=== PATIENT | female | born 1955 | race Caucasian/White ===

== ENCOUNTER → 2017-01-28 | Outpatient (CLI) | payer BC ==
[~2017-01-28] MED LIST: ALL60 PO; CALCTAB5 PO; MULT-506 PO
[2017-01-28 13:46] LABS: ESTIMATED AVERAGE GLUCOSE 146 mg/dl; HA1C FLAG Normal (Normal)
[2017-01-28 14:07] LABS: THYROID STIMULATING HORMONE 0.299 uIu/ml (0.300-4.500)
== END | disposition home or self-care (01) ==
LOC: C.LAB1850 12:17
PROVIDERS: ATTEND Internal Medicine Endocrinology, Diabetes & Metabolism
DX: E11.9 Type 2 diabetes mellitus without complications (principal); E05.90 Thyrotoxicosis, unspecified without thyrotoxic crisis or storm

== ENCOUNTER → 2017-03-02 | Outpatient (CLI) | payer BC ==
[2017-03-02 16:32] LABS: BASO % 0.2 %; BASO ABS # 0.02 K/uL (0-0.2); COMPLETE YES; EOS % 1.6 %; HEMATOCRIT 46.1 % (37-47); IG% 0.2 %; LYMPH % 19.2 %; LYMPH ABS # 1.66 K/uL (1.2-3.4); MEAN CELL VOLUME 89.7 fL (80-100); MEAN CORPUSCULAR HEMOGLOBIN 29.2 pg (25-34); MEAN CORPUSCULAR HGB CONC 32.5 g/dl (32-36); MEAN PLATELET VOLUME 10.6 fL (7.4-10.4); MONO % 8.7 %; NEUT % 70.1 %; PLATELET COUNT 313 K/uL (130-400); RED BLOOD COUNT 5.14 M/uL (4.2-5.4); WHITE BLOOD COUNT 8.64 K/uL (4.8-10.8)
[2017-03-02 16:58] LABS: ALT/SGPT 30 U/L (12-78); AST/SGOT 18 U/L (15-37); BLOOD UREA NITROGEN 14 mg/dl (7-18); BUN/CREATININE RATIO 19.2 (10-20); CALCIUM 9.7 mg/dl (8.5-10.1); CARBON DIOXIDE 27 mmol/L (21-32); CHLORIDE 104 mmol/L (98-107); CREATININE 0.72 mg/dl (0.60-1.20); GLUCOSE 82 mg/dl (70-99); POTASSIUM 3.6 mmol/L (3.5-5.1); SODIUM 141 mmol/L (136-145)
[2017-03-02 17:01] LABS: ALKALINE PHOSPHATASE 101 U/L (45-117)
[2017-03-02 17:05] LABS: THYROID STIMULATING HORMONE 1.15 uIu/ml (0.300-4.500)
== END | disposition home or self-care (01) ==
LOC: C.LAB1850 15:05
PROVIDERS: ATTEND Internal Medicine Hematology & Oncology
DX: C50.511 Malignant neoplasm of lower-outer quadrant of right female breast (principal); E05.90 Thyrotoxicosis, unspecified without thyrotoxic crisis or storm

== ENCOUNTER → 2017-03-30 | Outpatient (CLI) | payer BC ==
[2017-03-30 17:55] LABS: CHOLESTEROL/HDL RATIO 3.5; THYROID STIMULATING HORMONE 0.823 uIu/ml (0.300-4.500)
== END ==
LOC: C.LAB1850 16:43
PROVIDERS: ATTEND Internal Medicine Endocrinology, Diabetes & Metabolism
DX: E11.9 Type 2 diabetes mellitus without complications (principal); E05.90 Thyrotoxicosis, unspecified without thyrotoxic crisis or storm

== ENCOUNTER 2023-08-18 07:17 | Observation (INO) ==
--- NOTE | 2023-07-08 15:00 | PAT Medication Instructions ---
Medication Instructions Date of Service July 08, 2023 Home Medications Medication Instructions Recorded blood sugar diagnostic (NanoDetection TechnologyTouch #300 ea 04/01/22 Verio test strips) lancets 30 gauge (OneTouch Delica #200 ea 09/21/22 Lancets) anastrozole 1 mg tablet (Arimidex) 1 mg PO QPM calcium carbonate 600 mg-vitamin D3 20 mcg (800 unit) chewable tablet (Caltrate 600 plus D) 1 tab PO QAM cholecalciferol (vitamin D3) 50 mcg (2,000 unit) tablet 2,000 units PO QAM mecobalamin (vitamin B12) 1,000 mcg disintegrating tablet,sublingual 1,000 mcg sublingual QAM apixaban 5 mg tablet (Eliquis) 5 mg PO BID evolocumab 420 mg/3.5 mL subcutaneous wearable injector (Repatha Pushtronex) 420 mg subcut MONTHLY flecainide 50 mg tablet 50 mg PO Q12H cbd oil 1 dose PO UD PRN diclofenac sodium 20 mg/gram/actuation (2 %) topical soln metered-dose pump (Pen nsaid) 2 pump topical BID PRN metoprolol tartrate 25 mg tablet 25 mg PO BID insulin glargine U-300 conc 300 unit/mL (1.5 mL) subcutaneous pen (Toujeo SoloStar U-300 Insulin) 20 - 24 unit subcut HS methimazole 5 mg tablet 7.5 mg PO QPM semaglutide 0.25 mg or 0.5 mg (2 mg/3 mL) subcutaneous pen injector (Ozempic) 0.5 mg subcut WK vit C 250 mg-vit E 90 mg-zinc 40 mg-copper 1 ee-dgkdzd-rlikhv capsule (PreserVision AREDS-2) 1 tab PO QAM STOP 7 days before surgery semaglutide 0.25 mg or 0.5 mg (2 mg/3 mL) subcutaneous pen injector (Ozempic) 0.5 mg subcut WK ASK your surgeon for instructions diclofenac sodium 20 mg/gram/actuation (2 %) topical soln metered-dose pump (Pennsaid) 2 pump topical BID PRN ASK your prescriber and surgeon anastrozole 1 mg tablet (Arimidex) 1 mg PO QPM evolocumab 420 mg/3.5 mL subcutaneous wearable injector (Repatha Pushtronex) 420 mg subcut MONTHLY apixaban 5 mg tablet (Eliquis) 5 mg PO BID(in order for spinal or epidural anesthesia, Eliquis needs to be stopped 72 hours/3 days before surgery. Please check if okay with doctor that prescribes this to you) STOP taking 2 weeks before surgery (or as soon as possible if surgery is within 2 weeks) vit C 250 mg-vit E 90 mg-zinc 40 mg-copper 1 zi-hqsxwg-fkmxyp capsule (PreserVision AREDS-2) 1 tab PO QAM STOP taking 24 hours before surgery cbd oil 1 dose PO UD PRN DO NOT take the morning of surgery calcium carbonate 600 mg-vitamin D3 20 mcg (800 unit) chewable tablet (Caltrate 600 plus D) 1 tab PO QAM cholecalciferol (vitamin D3) 50 mcg (2,000 unit) tablet 2,000 units PO QAM mecobalamin (vitamin B12) 1,000 mcg disintegrating tablet,sublingual 1,000 mcg sublingual QAM Take morning of surgery With a small sip of water, OTHERWISE NOTHING TO EAT OR DRINK AFTER MIDNIGHT: flecainide 50 mg tablet 50 mg PO Q12H metoprolol tartrate 25 mg tablet 25 mg PO BID Take evening before surgery flecainide 50 mg tablet 50 mg PO Q12H metoprolol tartrate 25 mg tablet 25 mg PO BID insulin glargine U-300 conc 300 unit/mL (1.5 mL) subcutaneous pen (Toujeo SoloStar U-300 Insulin) 20 - 24 unit subcut HS methimazole 5 mg tablet 7.5 mg PO QPM Other Notes If you have any questions please call us at [phone] or [phone] or [phone] or [phone]
--- NOTE | 2023-07-13 13:50 | Anesthesiology Consultation ---
Date of Service July 13, 2023 Assessment & Plan (1) Encounter for pre-operative examination: - will attempt to obtain copy of thyroid studies patient is going to complete 07/14/23 for [facility] and will await 07/21/23 [facility] office note. - check BSG am DOS. - right arm restriction. - Patient anesthesia h/o complication with spinal anesthesia: (emergent c- section) during the insertion of the spinal patient states "they hit something that caused severe pain" residual pain for several months. We discussed neuraxial vs general anesthesia, at this time she prefers to pursue plan for neuraxial anesthesia. She declined questions or concerns; is aware she can also further discuss this with anesthesiologist am DOS. - difficult IV stick. - cardiology office visit 02/03/23: "...EP evaluation...paroxysmal atrial fibrillation, SVT, PVCs, hypertension...no cardiac symptoms...PAF/SVT...has maintained sinus rhythm with no subjective or objective relapse of the arrhythmias...CHADS2-vasc is 4 corresponding to 4% annual stroke risk...follow- up in 6 months..." - Ozempic instructions: Patient takes on (Tuesday). Patient informed at PAT visit to stop 7 days prior to surgery-voiced understanding. Instructed last dose will be: (08/10/23). Patient advised to check with prescriber to see if alternative diabetic management changes recommended while holding Ozempic and instructions on resuming Ozempic. She was advised if alternative diabetic medication is advised to call back to PAT to update chart and discuss if any further preop medication instructions needed. She verbalized understanding and denied questions or concerns. - Outpatient joint assessment: Patient is currently scheduled for inpatient pathway. If re-evaluated and patient/surgeon requests outpatient pathway, patient is not recommended candidate for outpatient joint program from anesthesia standpoint. Chart Review Chart Review: Pending: Refer to Additional Notes / Consult section and Patient seen in Pre Admission Testing Teaching & Discussion Pre-Anesthesia Teaching/Discussion Notes: Instructed NPO after midnight before surgery, except medications with 15 cc of water. Medication instructions provided according to the PAT guidelines. History Surgery Operation Date: 08/18/23 08:45 Proposed Procedures p Right Total Knee Arthroplasty - Ralph Sun MD s Left Knee Intra-articular Injection - Ralph Sun MD Height/Weight Height: 5 ft 2 in Weight: 83.9 kg Allergies Allergy/AdvReac Type Severity Reaction Status Date / Time latex Allergy Severe redness Verified 07/08/23 12:38 and blistering metformin AdvReac Severe diarrhea Verified 07/08/23 12:06 morphine AdvReac Severe unable to Verified 07/08/23 12:06 focus, nauseated, dizziness oxycodone AdvReac Severe SEVERE Verified 07/08/23 12:06 VOMITING celecoxib [From Celebrex] AdvReac Intermediate Gastrointestinal Verified 07/08/23 12:08 Upset Decongestant TABS AdvReac Severe "constant Uncoded 07/08/23 12:08 swallowing" unsure of which exact drug Medications Home Medications Medication Instructions Recorded Confirmed Last Taken anastrozole 1 mg tablet (Arimidex) 1 mg PO QPM 09/17/19 07/08/23 Unknown calcium carbonate 600 mg-vitamin 1 tab PO QAM 09/17/19 07/08/23 Unknown D3 20 mcg (800 unit) chewable tablet (Caltrate 600 plus D) cholecalciferol (vitamin D3) 50 2,000 units PO QAM 09/17/19 07/08/23 Unknown mcg (2,000 unit) tablet mecobalamin (vitamin B12) 1,000 1,000 mcg sublingual QAM 09/17/19 07/08/23 Unknown mcg disintegrating tablet,sublingual apixaban 5 mg tablet (Eliquis) 5 mg PO BID 09/19/20 07/08/23 Unknown evolocumab 420 mg/3.5 mL 420 mg subcut MONTHLY 12/19/20 07/08/23 Unknown subcutaneous wearable injector (Repatha Pushtronex) flecainide 50 mg tablet 50 mg PO Q12H 12/19/20 07/08/23 Unknown blood sugar diagnostic (OneTouch #300 ea 04/01/22 04/19/23 Unknown Verio test strips) pen needle, diabetic 31 gauge x 04/01/22 04/19/23 Unknown 12/16" (BD Ultra-Fine Mini Pen Needle) cbd oil 1 dose PO UD PRN Pain 09/21/22 07/08/23 Unknown diclofenac sodium 20 2 pump topical BID PRN Pain 09/21/22 07/08/23 Unknown mg/gram/actuation (2 %) topical soln metered-dose pump (Pennsaid) lancets 30 gauge (OneTouch Delica #200 ea 09/21/22 04/19/23 Unknown Lancets) metoprolol tartrate 25 mg tablet 25 mg PO BID 04/19/23 07/08/23 Unknown insulin glargine U-300 conc 300 20 - 24 unit subcut HS 07/08/23 07/08/23 Unknown unit/mL (1.5 mL) subcutaneous pen ([employer] SoloStar U-300 Insulin) methimazole 5 mg tablet 7.5 mg PO QPM 07/08/23 07/08/23 Unknown semaglutide 0.25 mg or 0.5 mg (2 0.5 mg subcut WK 07/08/23 07/08/23 07/06/23 mg/3 mL) subcutaneous pen injector ([email or web address]) vit C 250 mg-vit E 90 mg-zinc 40 1 tab PO QAM 07/08/23 07/08/23 Unknown mg-copper 1 oo-utflwe-tqdhwo capsule (PreserVision AREDS-2) Past Medical History Medical History (Updated 07/13/23 @ 15:07 by Hilaria Han PA-C) Atrial fibrillation controlled with medication. Follows with [facility]. 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 slow to wake up with general anesthesia/strong pain medications History of blood transfusion 2000 Hx of vertigo stable per pt, denies recent episode Hyperthyroidism follows with [facility] [place] IBS (irritable bowel syndrome) controlled, stable per pt Limb alert care status right arm Macular degeneration Mild aortic stenosis Mild aortic stenosis (YENIFER 1.5 cm2, mean gradient 11mmHg) Nausea and vomiting after administration of anesthetic agent denies needing scop patch Obesity (BMI 30.0-34.9) Sleep apnea cpap at night Patient denies h/o stroke, seizures, heart attack, heart failure, or blood clots/DVTs. Exercise / Class Metabolic Activity II 4-5 Yardwork/Stairs/Walk up hill (denies chest discomfort or shortness of breath with 1 FOS) Past Family History Family History Father Heart disease Dyslipidemia Mother Heart disease Denies family history of Ovarian cancer Prostate cancer Myocardial infarction Breast cancer Colorectal cancer Past Surgical History Surgical History (Updated 07/13/23 @ 14:01 by Hilaria Han PA-C) H/O lumpectomy right lumpectomy (2016) History of bladder repair surgery History of section History of cholecystectomy lap History of colonoscopy History of hysterectomy History of open reduction and internal fixation (ORIF) procedure Left ankle with hardware History of surgery recto-vaginal fistula repair Past Anesthesia History No Family Hx of Anesthesia Complications and Other (slow to wake after anesthesia, denies re-intubation or unanticipated extended intubation) History of PONV History of PONV (with cholecystectomy; denies needing scop patch) and Hx of Motion Sickness Social History Smoking Status: Never smoker Do You Dip or Chew Tobacco: No Hx Alcohol Use: No Hx Substance Use: No substance use type: does not use Review of Systems Patient denies chest pain, shortness of breath, dyspnea on exertion, reflux, fever, chills, cough, wheezing, or palpitations. Physical Exam Vital Signs Vitals BP 119/79 P 64 TEMP 98.3 SP02 94% on RA RESP 18 Physical Patient resting comfortably in chair in no acute distress, alert and oriented, responding appropriately throughout visit Full cervical extension range of motion without pain TMD 3.5 finger breadths Mallampati Score 3 Dentition: right back broken tooth and left upper back crown, denies loose teeth, implants or bridges Lungs: normal respiratory effort. Good air movement, clear throughout to auscultation, no adventitious breath sounds Cardiac: regular rate and rhythm, no murmurs noted Carotid arteries: negative bruit bilat Lab Results Anesthesia Preop Results Results Anesthesia Widget: WBC 8.18 K/ul (4.8-10.8) 07/13/23 Hgb 14.9 g/dl (12.0-16.0) 07/13/23 Hct 44.6 % (37.0-47.0) 07/13/23 Plt 304 K/uL (130-400) 07/13/23 Na 139 mmol/L (136-145) 07/13/23 K 3.6 mmol/L (3.5-5.1) 07/13/23 Cl 105 mmol/L (98-107) 07/13/23 CO2 25 mmol/L (21-32) 07/13/23 BUN 15 mg/dl (6-23) 07/13/23 Creat 0.73 mg/dl (0.6-1.2) 07/13/23 Glucose Level 135 mg/dl (70-99(Fasting)) H 07/13/23 PT 10.9 Seconds (9.0-12.0) 07/13/23 PTT 30.6 Seconds (21.0-31.0) 07/13/23 INR 1.0 (0.9-1.1) 07/13/23 Urine Color Yellow 07/13/23 Urine Appearance Clear (Clear) 07/13/23 Urine pH 5.5 (4.5-7.5) 07/13/23 Urine Specific [place] 1.012 (1.000-1.030) 07/13/23 Urine Protein Negative (Negative) 07/13/23 Urine Glucose (UA) Negative (Negative) 07/13/23 Urine Ketones Negative (Negative) 07/13/23 Urine Blood 2+ (Negative) H 07/13/23 Urine Nitrite Negative (Negative) 07/13/23 Urine Bilirubin Negative (Negative) 07/13/23 Urine Urobilinogen Negative (Negative) 07/13/23 Urine Leukocyte Esterase Negative (Negative) 07/13/23 Urine WBC (Auto) 1-5 /hpf (0-5) 07/13/23 Urine RBC (Auto) 10-30 /hpf (0-4) H 07/13/23 Urine Hyaline Casts (Auto) 0 /lpf (0-5) 07/13/23 Urine Epithelial Cells (Auto) 5-10 /lpf (0-5) H 07/13/23 Urine Bacteria (Auto) Negative (Negative) 07/13/23 Blood Type A Positive 07/13/23 Antibody Screen NEGATIVE 07/13/23 Testing Electrocardiogram Date: 07/13/23 NSR, rate 69 bpm Left axis deviation No significant change vs 11/20/2007 Chest X-Ray Date: 07/13/23 No acute process of the chest Echocardiogram Date: 09/17/20 EF 55-60% Normal LV wall motion Mild mitral regurgitation Mild aortic stenosis (YENIFER 1.5 cm2, mean gradient 11mmHg) Mild tricuspid regurgitation Mild aortic regurgitation
--- NOTE | 2023-08-17 07:21 | History & Physical Report ---
Date of Service August 17, 2023 Assessment & Plan (1) Degenerative joint disease of knee, right: (2) Left knee DJD: Plan: Patient will be admitted for an elective right total knee replacement and intra- articular injection into the left knee History of Present Illness Chief Complaint: Bilateral knee pain right greater than left Primary Care Provider: Cornel Quintana Patient is a 61-year-old woman with greater than 2-year history of right greater than left knee pain. It is associated with decreased range of motion and decreased walking tolerance. She uses a brace at all times but still has giving way sensation and pain with all activities of daily living. She has x-rays of degenerative disease quite severe in the lateral and patellofemoral compartments. She has failed both Visco and corticosteroid injections on the right is admitted for elective right knee replacement and left knee injection. She has a history of diabetes her current A1c is 6.6 she also has a history of paroxysmal atrial fibrillation Allergies Allergy/AdvReac Type Severity Reaction Status Date / Time latex Allergy Severe redness Verified 07/08/23 12:38 and blistering metformin AdvReac Severe diarrhea Verified 07/08/23 12:06 morphine AdvReac Severe unable to Verified 07/08/23 12:06 focus, nauseated, dizziness oxycodone AdvReac Severe SEVERE Verified 07/08/23 12:06 VOMITING celecoxib [From Celebrex] AdvReac Intermediate Gastrointestinal Verified 07/08/23 12:08 Upset Decongestant TABS AdvReac Severe "constant Uncoded 07/08/23 12:08 swallowing" unsure of which exact drug Home Medications Medication Instructions Recorded Confirmed Type anastrozole 1 mg tablet (Arimidex) 1 mg PO QPM 09/17/19 07/21/23 History calcium carbonate 600 mg-vitamin 1 tab PO QAM 09/17/19 07/21/23 History D3 20 mcg (800 unit) chewable tablet (Caltrate 600 plus D) cholecalciferol (vitamin D3) 50 2,000 units PO QAM 09/17/19 07/21/23 History mcg (2,000 unit) tablet mecobalamin (vitamin B12) 1,000 1,000 mcg sublingual QAM 09/17/19 07/21/23 History mcg disintegrating tablet,sublingual apixaban 5 mg tablet (Eliquis) 5 mg PO BID 09/19/20 07/21/23 History evolocumab 420 mg/3.5 mL 420 mg subcut MONTHLY 12/19/20 07/21/23 History subcutaneous wearable injector (Repatha Pushtronex) flecainide 50 mg tablet 50 mg PO Q12H 12/19/20 07/21/23 History pen needle, diabetic 31 gauge x 04/01/22 07/21/23 History 3/16" (BD Ultra-Fine Mini Pen Needle) cbd oil 1 dose PO UD PRN Pain 09/21/22 07/21/23 History diclofenac sodium 20 2 pump topical BID PRN Pain 09/21/22 07/21/23 History mg/gram/actuation (2 %) topical soln metered-dose pump (Pennsaid) lancets 30 gauge (InstapageTouch Delica #200 ea 09/21/22 07/21/23 Rx Lancets) metoprolol tartrate 25 mg tablet 25 mg PO BID 04/19/23 07/21/23 History semaglutide 0.25 mg or 0.5 mg (2 0.5 mg subcut WK 07/08/23 07/21/23 History mg/3 mL) subcutaneous pen injector (Ozempic) vit C 250 mg-vit E 90 mg-zinc 40 1 tab PO QAM 07/08/23 07/21/23 History mg-copper 1 jr-uhyyge-znrivp capsule (PreserVision AREDS-2) blood sugar diagnostic (OneTouch #100 ea 07/21/23 07/21/23 Rx Verio test strips) insulin glargine U-300 conc 300 22 unit (0.0733 mL) subcut HS 90 07/21/23 07/21/23 Rx unit/mL (1.5 mL) subcutaneous pen days #9 mL (Toujeo SoloStar U-300 Insulin) methimazole 5 mg tablet 7.5 mg (1.5 x 5 mg) PO QPM #135 08/11/23 Rx tabs Past Med/Surg History Medical History Mild aortic stenosis Mild aortic stenosis (YENIFER 1.5 cm2, mean gradient 11mmHg) IBS (irritable bowel syndrome) controlled, stable per pt Limb alert care status right arm Macular degeneration Breast cancer, right breast 2016 -- lumpectomy with radiation treatments-right upper extremity restriction Atrial fibrillation controlled with medication. Follows with [facility]. no cardioversion Sleep apnea cpap at night Hx of vertigo stable per pt, denies recent episode Nausea and vomiting after administration of anesthetic agent denies needing scop patch History of anesthesia reaction a spinal anesthesia (emergent ) during the insertion of the spinal patient states "they hit something that caused severe pain" residual pain for several months. 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 Diabetes mellitus type 2, controlled IDDM Obesity (BMI 30.0-34.9) Hyperthyroidism follows with [facility] Goiter stable per pt, denies dysphagia Dyslipidemia on Repatha Dysesthesia pt unsure History of blood transfusion 2000 Surgical History History of surgery recto-vaginal fistula repair History of section History of open reduction and internal fixation (ORIF) procedure Left ankle with hardware History of cholecystectomy lap History of colonoscopy H/O lumpectomy right lumpectomy (2015) History of bladder repair surgery History of hysterectomy Family History Father Heart disease Dyslipidemia Mother Heart disease Denies family history of Ovarian cancer Prostate cancer Myocardial infarction Breast cancer Colorectal cancer Social History Smoking Status: Never smoker Second Hand Exposure: No; Do You Dip or Chew Tobacco: No; Tobacco Cessation Education Requested by Patient: No Hx Alcohol Use: No Hx Substance Use: No Preferred Language: Urdu Communication Ability: Effective Sprinkler Driver Required: No Beliefs That Will Affect Care: None Current Living Situation: Spouse Other Information That Helps Us Care for You: No Feels Safe at Home: Yes Safety Concerns: Feels Safe At This Time Assistive Devices: CPAP and Glasses Review of Systems Review of Systems: Knee pain Physical Exam Physical Exam: General: Slightly overweight female who appears her stated age HEENT: NCAT, EOMI, PERRLA Neck: Negative JVD or bruits Heart: Currently regular rate and rhythm no murmurs or gallops appreciated Lungs: Breath sounds clear and equal in all [email or web address] Abdomen: Obese soft nontender bowel sounds positive. Extremities: Right knee shows valgus alignment passive range of motion is 0 to 115 degrees trace lateral laxity and effusion. Left knee shows neutral alignment with a lateral joint line discomfort Neurological and vascular: Intact Results & Data Results & Data Vital Signs (Past 12 Hours) Weight is 84 kg BMI 34 Blood pressure 126/84 Pulse 70 and regular
[~2023-08-18 07:17] MED LIST changes: +ACETAMINOPHEN 500 MG TAB PO SCH; -ALL60 PO; +BUPIVACAINE 0.5 % 5 MG/1 ML PF 10ML VIAL ONE; -CALCTAB5 PO; +CeleBREX 200 MG CAP PO SCH; +FAMOTIDINE 20 MG TAB PO SCH; +GABAPENTIN 300 MG CAP PO SCH; +LIDOCAINE 1% LOCAL 20 ML VIAL INFIL SCH; +LR 500ML BOLUS, THEN 15ML/HR IV SCH; +LR 60ML/HR IV SCH; +METOCLOPRAMIDE HCL 10 MG TABLET PO SCH; -MULT-506 PO; +ROPIVACAINE 0.5% 5 MG/ML 30 ML VIAL ONE; +ROPIVACAINE 0.5% HCL/PF 150 MG, BUPIVACAINE 0.75% MPF 20 ML, EPINEPHrine 30MG/30ML (OR ... INSTIL SCH; +TRANEXAMIC ACID 1,000 MG **IV Intra-op IV SCH; +TRANEXAMIC ACID 1,000 MG **IV Pre-op IV SCH; +ceFAZolin 2000MG 2,000 MG/15 ML SYR IV SCH; +dexAMETHasone 4 MG TAB PO SCH; +methylPREDNISolone acetate 80 MG/ML VIAL IA SCH; +traMADol HCL 50 MG TABLET PO SCH
[2023-08-18] MEDS ORDERED: PROPOFOL IV EMULSION 10 MG/ML 20 ML VIAL IV ONE (07:50)
[2023-08-18] MEDS ORDERED: LIDOCAINE 2% 2 ML VIAL/AMP(20MG/ML) INFIL ONE (07:50)
[2023-08-18] MEDS ORDERED: MIDAZOLAM HCL 1 MG/ML 2ML VIAL ONE ×2 (07:51→09:13)
[2023-08-18] MEDS: [UNRECOGNIZED DRUG - REMARK] SCH ×2 (08:26→12:23)
[2023-08-18] MEDS ORDERED: fentaNYL citrate PF 100 MCG/2 ML VIAL IV PRN (08:35)
[2023-08-18] MEDS ORDERED: PROMETHAZINE HCL 12.5 MG in SODIUM CHLORIDE 0.9% 50 ML IV PRN (08:35)
[2023-08-18] MEDS ORDERED: ONDANSETRON INJ 2 MG/ML 2 ML VIAL IV PRN ×2 (08:35→11:18)
[2023-08-18] MEDS ORDERED: HYDROmorphone INJ 2 MG/ML SYR/VIAL IV PRN (08:35)
[2023-08-18] MEDS ORDERED: ATROPINE SULFATE 0.1 MG/ML 10ML SYR IV PRN (08:35)
[2023-08-18] MEDS ORDERED: ePHEDrine sulfate 50 MG/ML AMP IV PRN (08:35)
[2023-08-18] MEDS ORDERED: ORTHO JOINT ANESTHETIC ONE (09:13)
--- NOTE | 2023-08-18 09:29 | History & Physical Bridge Note ---
Date of Service August 18, 2023 History & Physical Bridge Note I have examined the patient, reviewed the History & Physical and in the interval since the performance of the History & Physical I have noted the following changes of clinical significance: no changes noted
[2023-08-18] MEDS ORDERED: KETAMINE HCL 10MG/ML SYR ONE (09:49)
--- NOTE | 2023-08-18 11:09 | Post Operative Brief Note ---
Immediate Post Op Note v1 Date of Surgery August 18, 2023 Pre & Post Diagnosis Operation Date: 08/18/23 08:55 <No data on this case meets the specified criteria> I identified the patient and participated in the time-out.: Yes Procedure Operation Date: 08/18/23 08:55 <No data on this case meets the specified criteria> Surgeon Ralph Sun MD Cod Clerk None Estimated Blood Loss 100 Findings Consistent with Post-Op Diagnosis Drains Hemovac Drain
[2023-08-18] MEDS ORDERED: bisacodyL 10 MG SUPP PR PRN (11:18)
[2023-08-18] MEDS ORDERED: METOCLOPRAMIDE HCL INJ 5 MG/ML 2 ML VIAL IV PRN (11:18)
[2023-08-18] MEDS ORDERED: NALOXONE HCL 0.4 MG/1 ML VIAL/CARP IV PRN (11:18)
[2023-08-18] MEDS ORDERED: MAGNESIUM HYDROXIDE SUSP 30 ML UDC PO PRN (11:18)
--- NOTE | 2023-08-18 11:26 | Operative Report ---
Post Operative Report Pre & Post Diagnosis Operation Date: 08/18/23 08:55 Pre-Op Diagnosis: Right Knee Degenerative Joint Disease Post-Op Diagnosis: Right Knee Degenerative Joint Disease I identified the patient and participated in the time-out.: Yes Procedure Operation Date: 08/18/23 08:55 Actual Procedures p Right Total Knee Arthroplasty, Cemented - Ralph Sun MD s Left Knee Intra-articular Injection(Left) - Ralph Sun MD Surgeon Ralph Sun MD Order Management Specialist None Estimated Blood Loss 100 Findings Consistent with Post-Op Diagnosis advanced tricompartmental degenerative changes worse in the lateral compartment with periarticular osteophytes Specimens bone and cartilage fragments Indications patient is a 67-year-old female with end-stage arthritis of the right knee which has failed conservative management including injections and bracing. Components used: [employer] journey 2 posterior stabilized knee system: Femur size 5 with Oxinium coating, tibia size 4 x 11, patella size 35 oval Description of Procedure following satisfactory spinal anesthesia patient was supine on the operating room table. The right lower extremity was prepared ChloraPrep and draped sterilely. A surgical timeout was performed. A midline incision was made with a median parapatellar arthrotomy. Hemostasis was obtained. There was some general oozing. The knee showed the changes noted above. The patella was freehand cut and sized for a 35 button which enhanced exposure to the lateral gutter. The cruciate ligaments were excised. The patient matched femoral block was applied. Femoral distal rotation and resection were setting completed. The 4-in-1 block was used to finish preparation of the femur. The tibial meniscal fragments were excised. The patient matched tibial block was applied. Tibial resection was completed. Soft tissue balancing was completed in flexion and extension. A trial reduction with the above-mentioned components was performed. This showed good tensioning and stability on the collateral ligaments from full extension to more than 120 degrees of flexion. The patella tracked well throughout. The trial components were removed. The capsule was prepared with the orthopedic cocktail. After irrigation and drying the components were cemented using Inés Z be cement cementing the tibia first, femur second, patella third. When the cemented hardened the knee was checked and showed similar stability and tracking. The wound was irrigated with 500 cc of experience irrigation. A Hemovac drain was placed. The capsulotomy was closed with interrupted [id number]-[id number]-pydwh sutures of 1 Vicryl and a running suture of 0 strata fix. Following irrigation the subcutaneous tissue was closed with 2 oh strata fix deep and 3 oh strata fix in a running subcuticular fashion. A Prineo dressing followed by a negative pr essure wound dressing and a compressive bandage was applied. A second surgical timeout was performed. The left knee was prepared and injected with 80 mg of Depo-Medrol and 6 cc of 1% lidocaine through an inferior lateral portal. A dry dressing was applied. The patient was returned to her bed in stable condition. I attest to the content of the Intraoperative Record and any orders documented therein. Any exceptions are noted below.
--- NOTE | 2023-08-18 12:03 | Anesthesiology Progress Note ---
Date of Service August 18, 2023 Anesthesia Post Procedure Vital Signs Vital Signs: Temp Pulse Pulse Resp BP Pulse Ox O2 Del Method 08/18/23 11:45 36.2 C L 61 15 109/69 95 Nasal Cannula 08/18/23 11:35 58 L 15 106/59 L 95 Nasal Cannula 08/18/23 11:25 59 L 15 106/59 L 95 Nasal Cannula 08/18/23 11:17 36.1 C L 67 16 104/59 L 94 Nasal Cannula 08/18/23 07:55 36.9 C 72 18 118/77 97 Room Air O2 Flow Rate 08/18/23 11:45 2 08/18/23 11:35 2 08/18/23 11:25 2 08/18/23 11:17 2 08/18/23 07:55 Transfer of Care Handoff Completed per policy Notes Mental Status: alert / awake / arousable and participated in evaluation Nausea / Vomiting: adequately controlled Pain: adequately controlled Airway Patency, RR, SpO2: stable & adequate BP & HR: stable & adequate Hydration State: stable & adequate Neuraxial Anesthesia: was administered and sensory block is resolving Anesthetic Complications: no major complications apparent and Pt Satisfied with anesthetic care
[2023-08-18] MEDS ORDERED: NON-FORMULARY MEDICATION (Blood Sugar Diagnostic [Onetouch Verio Test Strips] strip) SCH (12:20)
[2023-08-18] MEDS ORDERED: LANCETS SCH (12:20)
[2023-08-18] MEDS: SODIUM CHLORIDE 0.9% 1,000 ML IV SCH ×2 (12:53→22:36)
[2023-08-18] MEDS: ACETAMINOPHEN 500 MG TAB PO SCH ×2 (14:46→22:10)
[2023-08-18] MEDS ORDERED: PHARMACY GLYCEMIC MGMT CONSULT PRN (16:42)
[2023-08-18] MEDS: ceFAZolin 2000MG 2,000 MG/15 ML SYR IV SCH (17:41)
[2023-08-18] MEDS ORDERED: GLUCOSE 40% GEL 15 GM TUBE PO PRN (17:45)
[2023-08-18] MEDS ORDERED: GLUCAGON FOR INJ 1 MG VIAL IM PRN (17:45)
[2023-08-18] MEDS ORDERED: CARBOHYDRATES FOR HYPOGLYCEMIA PO PRN (17:45)
[2023-08-18] MEDS ORDERED: DEXTROSE 50% 50 ML SYRINGE IV PRN (17:45)
[2023-08-18] MEDS ORDERED: GLUCOSE 10 TAB/TUBE PO PRN (17:45)
[2023-08-18] MEDS: INSULIN ASPART PER UNIT CHARGE SC SCH ×2 (17:47→20:33)
[2023-08-18] MEDS: traMADol HCL 50 MG TABLET PO PRN (17:57)
[2023-08-18] MEDS: CeleBREX 200 MG CAP PO SCH (20:33)
[2023-08-18] MEDS: METOPROLOL TARTRATE 25 MG TAB PO SCH (20:34)
[2023-08-18] MEDS: FLECAINIDE ACETATE 100 MG TABLET PO SCH (20:34)
[2023-08-18] MEDS: DOCUSATE SODIUM 100 MG CAP PO SCH (20:35)
[2023-08-18] MEDS ORDERED: LANTUS PER UNIT CHARGE SC SCH (21:00)
[2023-08-18] MEDS ORDERED: ANASTROZOLE 1 MG TAB PO SCH (21:00)
[2023-08-18] MEDS ORDERED: SENNA 8.6 MG TAB PO SCH (21:00)
[2023-08-18] MEDS ORDERED: methIMAzole 5 MG TABLET PO SCH (21:00)
[2023-08-19] MEDS: traMADol HCL 50 MG TABLET PO PRN ×2 (00:52→10:33)
[2023-08-19] MEDS: ceFAZolin 2000MG 2,000 MG/15 ML SYR IV SCH (00:52)
[2023-08-19] MEDS: ACETAMINOPHEN 500 MG TAB PO SCH (05:57)
--- NOTE | 2023-08-19 08:07 | Orthopedic Progress Note ---
Date of Service August 19, 2023 Assessment & Plan (1) Status post right knee replacement: Plan: 67 yo female stable POD #1 s/p right TKA 1. Med management 2. DVT prophylaxis- resume Eliquis as instructed, SCDs 3. PT/OT 4. D/C planning- home w/ HH Admission and Anticipated Discharge Date Admission Date: August 18, 2023 Subjective Pt resting in bed, pain controlled, denies complaints Physical Exam Physical Exam: Dressing/drain in place, DEYANIRA in place, toes mobile, NVI Results & Data Vital Signs (Past 12 Hours) Vital Signs Temp Pulse Resp BP Pulse Ox O2 Del Method 08/19/23 07:02 36.4 C L 62 16 107/65 95 Room Air 08/19/23 02:52 36.9 C 69 18 97/60 L 93 Room Air 08/18/23 22:27 36.3 C L 66 18 114/69 95 Room Air Laboratory Results 08/19/23 08/18/23 08/18/23 Range/Units 07:52 20:03 16:35 POC Glucose 155 H 204 H 214 H (70-99) mg/dl 08/18/23 08/18/23 08/18/23 Range/Units 12:24 11:25 08:32 POC Glucose 162 H 140 H 129 H (70-99) mg/dl
[2023-08-19] MEDS: FLECAINIDE ACETATE 100 MG TABLET PO SCH (08:24)
[2023-08-19] MEDS: DOCUSATE SODIUM 100 MG CAP PO SCH (08:25)
[2023-08-19] MEDS: METOPROLOL TARTRATE 25 MG TAB PO SCH (08:25)
[2023-08-19] MEDS: CeleBREX 200 MG CAP PO SCH (08:25)
[2023-08-19] MEDS: INSULIN ASPART PER UNIT CHARGE SC SCH (08:29)
[2023-08-19 08:34] LABS: Hematocrit (blood only) 39.5 % (37.0-47.0); Hemoglobin 13.4 g/dl (12.0-16.0); Mean Corpuscular Hemoglobin 30.5 pg (25.0-34.0); Mean Corpuscular Hgb Conc 33.9 g/dL (32.0-36.0); Mean Platelet Volume 10.5 fL (9.4-12.4); Platelet Count 307 K/uL (130-400); RDW Coefficient of Variation 13.6 % (11.5-14.5); RDW Standard Deviation 45.1 fL (36.4-46.3); Red Blood Count 4.39 M/uL (4.20-5.40); White Blood Count 16.61 K/ul (4.8-10.8)
[2023-08-19 08:50] LABS: Calcium 9.4 mg/dl (8.6-10.3); Creatinine Clr Calc Pharmacy 58.7 ml/min; Est GFR (African American) 74.2 ml/min; Potassium 4.1 mmol/L (3.5-5.1)
[2023-08-19] MEDS ORDERED: CHOLECALCIFEROL 1,000 UNITS 25 MCG TAB PO SCH (09:00)
[2023-08-19] MEDS ORDERED: MULTIVITAMIN TAB PO SCH (09:00)
== END 2023-08-19 10:52 | disposition home health service (06) ==
LOC: 3E 07:17 → ASU 07:17